=== PATIENT | female | born 1975 | race Caucasian/White ===

== ENCOUNTER 2018-01-21 22:57 | Emergency (ER) | payer MEDICAID ==
[~2018-01-21] VITALS: Ht 157.5 cm; Wt 46.0 kg
[2018-01-21] MEDS ORDERED: MORPHINE SULFATE 4 MG/ML CPJ (NOT FOR IM USE) IV STA (23:18)
[2018-01-21] MEDS ORDERED: SODIUM CHLORIDE 0.9% 1,000 ML IV ONE (23:18)
[2018-01-21] MEDS ORDERED: METOCLOPRAMIDE HCL 10MG/2ML VIAL IV ONE (23:30)
[2018-01-22] LABS: BASOPHILS % 0.2 % (0.0-2.0); EOSINOPHILS % 0.9 % (0.0-5.0); HEMATOCRIT. 39.4 % (36.0-48.0); HEMOGLOBIN. 13.5 g/dL (12.0-16.0); LYMPHOCYTES % 40.5 % (20.0-50.0); MEAN CORPUSCULAR HEMOGLOBIN 30.9 pg (28.0-32.0); MEAN CORPUSCULAR VOLUME 90.3 fL (81.0-99.0); MEAN PLATELET VOLUME 8.7 fl (7.4-10.4); MONOCYTES % 5.1 % (2.0-8.0); NEUTROPHILS % 53.3 % (40.0-76.0); PLATELET 311 x1000/uL (130-400); RED BLOOD CELL COUNT 4.36 mill/uL (4.2-5.4); RED CELL DISTRIBUTION WIDTH 12.8 % (11.6-14.6)
[2018-01-22 00:08] LABS: INR 1.1; PARTIAL THROMBOPLASTIN TIME 30.1 sec (23.4-31.0); PROTHROMBIN TIME 10.7 sec (9.1-11.1)
[2018-01-22 00:29] LABS: CHLORIDE 102 mEq/L (98-107)
[2018-01-22 00:30] LABS: HCG SCREEN NEGATIVE
[2018-01-22 00:40] LABS: ETHANOL BLOOD < 10 mg/dL
[2018-01-22] MEDS ORDERED: KETOROLAC 30MG/ML VIAL IV ONE (01:00)
[2018-01-22 02:28] VITALS: BP 110/69
== END 2018-01-22 02:38 | disposition home or self-care (01) ==
LOC: ER 23:15
DX: R55 Syncope and collapse (principal); R00.0 Tachycardia, unspecified; I69.854 Hemiplegia and hemiparesis following other cerebrovascular disease affecting left non-dominant side; Z86.12 Personal history of poliomyelitis
CPT/HCPCS: 36415; 70450; 71045; 80053; 83880; 84484; 84703; 85025; 85610; 85730; 93005; 96361; 96374; 96375; 99284; G0482; J1885; J2270; J2765; J7030